=== PATIENT | female | born 1965 | race Caucasian/White ===

== ENCOUNTER → 2017-06-19 | Outpatient (CLI) | payer OTHER | LOC: FIMAGING 16:10 | PROVIDERS: ATTEND Orthopaedic Surgery | DX: Z01.818 Encounter for other preprocedural examination (principal); M17.11 Unilateral primary osteoarthritis, right knee ==

== ENCOUNTER 2017-07-05 09:33 | Inpatient (IN) | payer OTHER ==
[~2017-07-05 09:33] MED LIST: ROPIVACAINE 0.2% 80 MG, EPINEPHrine 0.2 MG, KETOROLAC TROMETHAMINE 30 MG in SYRINGE 0 ML IU ONE; TRANEXAMIC ACID 3,000 MG in NS 50 ML IRR ONE
[2017-07-05] MEDS ORDERED: VANCOMYCIN 1 GM VIAL ONE (10:29)
[2017-07-05] MEDS ORDERED: TRANEXAMIC ACID 3,000 MG/50 ML BAG IRR ONE (10:29)
[2017-07-05] MEDS ORDERED: LR 1,000 ML IV ONE (10:48)
[2017-07-05] MEDS ORDERED: DEXAMETHASONE 4 MG/ML VIAL IVP ONE (10:48)
[2017-07-05] MEDS ORDERED: ACETAMINOPHEN 325 MG TAB PO ONE (10:48)
[2017-07-05] MEDS ORDERED: FAMOTIDINE 20 MG TAB PO ONE (10:48)
[2017-07-05] MEDS ORDERED: LIDOCAINE 1% 2 ML INJ ID PRN (10:48)
[2017-07-05] MEDS ORDERED: ceFAZolin 2 GM/SWFI 2 GM/20 ML SYR IVP ONE (10:48)
--- NOTE | 2017-07-05 11:56 | PDHPUP ---
History & Physical Update H&P update statement: This history and physical update is based on an assessment of the patient which was completed after admission or registration (within 24 hours), but prior to the surgery/procedure. H&P update: H&P reviewed & patient examined, no change in patient's condition since H&P completed
[2017-07-05] MEDS ORDERED: MIDAZOLAM 2 MG/2 ML VIAL ONE (13:38)
[2017-07-05] MEDS ORDERED: MIDAZOLAM 2 MG/2 ML VIAL IVP ONE (13:39)
--- NOTE | 2017-07-05 13:41 | PDANEPAE ---
ANE History of Present Illness R KNEE OA ANE Past Medical History - Cardiovascular History Hx Hypertension: No Hx Arrhythmias: No Hx Chest Pain: No Hx Coronary Artery / Peripheral Vascular Disease: No Hx CHF / Valvular Disease: No Hx Palpitations: No - Pulmonary History Hx COPD: No Hx Asthma/Reactive Airway Disease: No Hx Recent Upper Respiratory Infection: No Hx Oxygen in Use at Home: No Hx Sleep Apnea: No Sleep Apnea Screening Result - Last Documented: Negative - Neurologic History Hx Cerebrovascular Accident: Yes Hx Seizures: No Hx Dementia: No Neurologic History Comment: migraine that present as stoke symptoms age 25 - Endocrine History Hx Diabetes: No - Renal History Hx Renal Disorders: No - Liver History Hx Hepatic Disorders: No - Neurological & Psychiatric Hx Hx Neurological and Psychiatric Disorders: No - Cancer History Hx Cancer: No - Congenital Disorder History Hx Congenital Disorders: No - GI History Hx Gastrointestinal Disorders: No - Other Health History Other Health History: none - Chronic Pain History Chronic Pain: No - Surgical History Prior Surgeries: two knee , shoulder surgeries ANE Review of Systems Review of Systems: - Exercise capacity METS (RN): 4 METS ANE Patient History - Allergies Allergies/Adverse Reactions: No Known Allergies Allergy (Verified 06/02/17 16:15) - Home Medications Home Medications: Aspirin [Aspirin 81mg (*)] 81 mg PO DAILY 05/26/17 [Last Taken 06/21/17] Herbals/Supplements -Info Only 1 ea PO DAILY 05/26/17 [Last Taken 06/21/17] - NPO status NPO Status: no food or drink >8 hours NPO Since - Liquids (Date): 07/05/17 NPO Since - Liquids (Time): 08:00 NPO Since - Solids (Date): 07/04/17 NPO Since - Solids (Time): 19:30 - Smoking Hx Smoking Status: Never smoked - Family Anes Hx Family Hx Anesthesia Complications: none ANE Labs/Vital Signs - Vital Signs Vital Signs: reviewed preoperatively; see RN documention for details Blood Pressure: 124/69 Heart Rate: 74 Respiratory Rate: 16 O2 Sat (%): 96 Height: 180.34 cm Weight: 79.379 kg ANE Physical Exam - Airway Neck exam: FROM Mallampati Score: Class 3 Mouth exam: normal dental/mouth exam - Pulmonary Pulmonary: no respiratory distress - Cardiovascular Cardiovascular: regular rate and rhythym - ASA Status ASA Status: II ANE Anesthesia Plan Anesthesia Plan: GA w LMA, spinal Regional Anesthesia: adductor canal FNB
[2017-07-05] MEDS ORDERED: PROPOFOL/EMULSION 500 MG/50 ML BOTTLE IV ONE (13:46)
[2017-07-05] MEDS ORDERED: fentaNYL 100 MCG/2 ML INJ ONE ×3 (13:46→16:11)
[2017-07-05] MEDS ORDERED: OXYCODONE/APAP 5/325 TAB PO PRN (14:23)
[2017-07-05] MEDS ORDERED: PROMETHAZINE HCL 25 MG/ML INJ IVP PRN ×2 (14:23→15:15)
[2017-07-05] MEDS ORDERED: MEPERIDINE 25 MG/ML SYR IVP PRN (14:23)
[2017-07-05] MEDS ORDERED: NALOXONE HCL 0.4 MG/ML INJ IVP PRN (14:23)
[2017-07-05] MEDS ORDERED: ONDANSETRON 4 MG/2 ML VIAL IVP PRN ×2 (14:23→15:15)
[2017-07-05] MEDS ORDERED: DEXAMETHASONE 4 MG/ML VIAL ONE (15:07)
[2017-07-05] MEDS ORDERED: ONDANSETRON 4 MG/2 ML VIAL ONE (15:07)
[2017-07-05] MEDS ORDERED: ROPIVACAINE HCL 150 MG/30 ML INJ ONE (15:07)
[2017-07-05] MEDS ORDERED: POLYETHYLENE GLYCOL 3350 17 GM PKT PO PRN (15:15)
[2017-07-05] MEDS ORDERED: LACTULOSE 20 GM/30 ML UDCUP PO PRN (15:15)
[2017-07-05] MEDS ORDERED: DIPHENOXYLATE/ATROPINE LOMOTIL 1 TAB PO PRN (15:15)
[2017-07-05] MEDS ORDERED: TEMAZEPAM 15 MG CAP PO PRN (15:15)
[2017-07-05] MEDS ORDERED: PROMETHAZINE HCL 25 MG SUPPR PR PRN (15:15)
[2017-07-05] MEDS ORDERED: BISACODYL 10 MG SUPP PR PRN (15:15)
[2017-07-05] MEDS ORDERED: CYCLOBENZAPRINE 10 MG TAB PO PRN (15:15)
[2017-07-05] MEDS ORDERED: METOCLOPRAMIDE 10 MG/2 ML VIAL IVP PRN (15:15)
[2017-07-05] MEDS ORDERED: diphenhydrAMINE 25 MG CAP PO PRN (15:15)
[2017-07-05] MEDS ORDERED: MAGNESIUM HYDROXIDE 30 ML UDCUP PO PRN (15:15)
[2017-07-05] MEDS ORDERED: ONDANSETRON DISINTEGRATING 4 MG TAB PO PRN (15:15)
--- NOTE | 2017-07-05 15:15 | POSTOPPROG ---
Post Op Note Date of Operation: 07/05/17 Surgeon: Jose Juan Xiao Primary Care Md: juancarlos xiao Anesthesiologist: dr. kee Anesthesia: Spinal, Other (Specify) (adductor canal block) Pre-op Diagnosis: right knee OA Post-op Diagnosis: same Indication: right knee pain due to OA that failed conservative measures Procedure: R TKA robot assisted Findings: severe knee OA Inf/Abcess present in the surg proc area at time of surgery?: No EBL: 50-100
[2017-07-05] MEDS ORDERED: LR 1,000 ML IV SCH (15:30)
--- NOTE | 2017-07-05 15:30 | POSTANESTH ---
Post Anesthetic Evaluation Cardiovascular Status: Normal, Stable Respiratory Status: Normal, Stable Level of Consciousness/Mental Status: Can Participate in Eval Pain Control: Adequate, Prn Tx Ordered Nausea/Vomiting Control: Adequate, Prn Tx Ordered Complications Possibly Related to Anesthesia: None Noted
[2017-07-05] MEDS ORDERED: HYDROmorphONE/DILAUDID 1 MG/ML INJ ONE ×2 (15:35→16:10)
[2017-07-05] MEDS: fentaNYL 100 MCG/2 ML INJ IVP PRN ×4 (15:39→16:54)
[2017-07-05] MEDS: HYDROmorphONE/DILAUDID 1 MG/ML INJ IVP PRN ×5 (15:40→16:53)
[2017-07-05] MEDS ORDERED: WARFARIN SODIUM 5 MG TAB PO SCH (16:00)
[2017-07-05] MEDS: ACETAMINOPHEN 325 MG TAB PO SCH ×2 (17:55→23:37)
[2017-07-05] MEDS: SENNOSIDES/DOCUSATE SODIUM TAB PO SCH (20:48)
[2017-07-05] MEDS: oxyCODONE IR 5 MG TAB PO PRN ×2 (20:48→23:39)
[2017-07-05] MEDS: FAMOTIDINE 20 MG TAB PO SCH (20:48)
[2017-07-05] MEDS: ceFAZolin 2 GM/DEXTROSE 100 ML IV SCH (20:48)
[2017-07-05 23:43] VITALS: O2SAT 98
[2017-07-06 04:55] LABS: HEMATOCRIT 37.3 % (38.0-47.0); HEMOGLOBIN 12.9 g/dL (12.6-16.3)
[2017-07-06 05:01] LABS: INR 1.17 (0.83-1.16); PROTIME(PATIENT) 15.1 SEC (12.0-15.0)
[2017-07-06] MEDS: ceFAZolin 2 GM/DEXTROSE 100 ML IV SCH (05:53)
[2017-07-06] MEDS: ACETAMINOPHEN 325 MG TAB PO SCH ×2 (05:53→11:52)
[2017-07-06 07:47] VITALS: BP 91/67; RESP 16; TEMP 97
[2017-07-06] MEDS ORDERED: ENOXAPARIN 40 MG/0.4 ML SYR SC SCH (09:00)
[2017-07-06] MEDS: FAMOTIDINE 20 MG TAB PO SCH (09:40)
[2017-07-06] MEDS: SENNOSIDES/DOCUSATE SODIUM TAB PO SCH (09:40)
[2017-07-06] MEDS: oxyCODONE IR 5 MG TAB PO PRN (09:43)
--- NOTE | 2017-07-06 11:56 | ASDISCHSUM ---
Discharge Information Plan Status:Home with No Needs Medically Cleared to Leave: Discharge Date:07/06/2017 11:53 AM CM D/C Disposition:Home, Routine, Self-Care ADT D/C Disposition:Home, Routine, Self-Care Projected Discharge Date:07/06/2017 11:53 AM Transportation at D/C: Discharge Delay Reason: Follow-Up Date:07/06/2017 11:53 AM Discharge Slot: Final Diagnosis: Placement Information Patient Contact Information Contact Name:SUJATHA Relationship: Address:[address] Work Phone: [facility]:[place] Alternate Phone: [facility]/Zip Code:[place] [address] Email: Financial Information Financial Class:HMO and PPO Plans Primary Plan Desc:[employer] Primary Plan Number:[id number] Secondary Plan Desc: Secondary Plan Number: Assessment Information Intervention Information
[2017-07-06 13:09] VITALS: PULSE 65
--- NOTE | 2017-07-06 19:51 | SOAPPROG ---
SOAP Progress Note Assessment/Plan: Assessment: Cinthia is doing well today s/p R TKA pain is well controlled anemia: level expected initially postop, asymptomatic VTE PPX: recommend coumadin and lovenox D/c planning: d/c to home today Plan: 07/06/17 19:50 Subjective: Cinthia is doing well, states mild nausea last night improved with zofran, denies SOB, chest pain. Objective: Vital Signs Temp Pulse Resp BP Pulse Ox 36.1 C 65 16 91/67 L 98 07/06/17 07:44 07/06/17 09:50 07/06/17 07:44 07/06/17 07:44 07/06/17 09:50 Laboratory Results 07/06/17 04:25 07/05/17 07/06/17 07/07/17 05:59 05:59 05:59 Intake Total 1100 Output Total 330 Balance 770 PT 15.1 SEC (12.0-15.0) H 07/06/17 04:25 INR 1.17 (0.83-1.16) H 07/06/17 04:25 RLE: incision dressing is clean and dry, NVI, +pf/df ICD10 Worksheet Patient Problems: Problems Problem Status Onset Primary localized osteoarthritis of right knee Acute
--- NOTE | 2017-07-07 15:47 | GOP ---
[f rep st] OPERATIVE REPORT DATE OF OPERATION: 07/05/2017 SURGEON: Marie Hammond MD APPRENTICESHIP CONSULTANT: REJI Jean. ANESTHESIA: Spinal. PREOPERATIVE DIAGNOSIS: Right knee osteoarthritis POSTOPERATIVE DIAGNOSIS: Right knee osteoarthritis. PROCEDURE PERFORMED: Total knee arthroplasty with computer navigation and robotic assistance. FINDINGS/PATHOLOGY: Severe tricompartmental osteoarthritis. ESTIMATED BLOOD LOSS: 30 cc INDICATIONS: This is a 51-year-old female with severe and progressive pain and deformity of the right knee unresponsive to conservative care. Risks and benefits of the surgical intervention were explained in detail. DESCRIPTION OF PROCEDURE: The patient was brought to the operative room and placed on the table in the supine position. Spinal anesthesia was induced without difficulty. A pneumatic tourniquet was applied about the right proximal thigh, and the leg was prepped and draped in a sterile fashion. The leg levy was applied. After exsanguination by elevation the tourniquet was inflated to 250 mm of mercury. Incision was made anterior medial from the tibial tuberosity to a point 2 cm proximal to the superior pole of the patella. Medial parapatellar arthrotomy was carried out from the superior pole of the patella and posteriorly in line with the fibers of the Type II VMO. The medial collateral ligament was elevated and the infrapatellar fat pad was resected. The patella was everted and the articular surface was excised. A 35 mm patellar button was placed. Attention was turned first to the distal aspect of the right femur. At 3 cm proximal to the medial rise of the femur, 2 percutaneous half pins were placed for fixation of the femoral array. In a similar fashion, 2 pins were placed anteromedial on the tibia for fixation of the tibial array. External land marking and registration of the hip center was performed without difficulty. Internal femoral and tibial registration was carried out without difficulty and the femoral and tibial checkpoints were placed and verified for accuracy. Attention was turned to the femur. The foot print for the size 5 femoral component was cut with the saw using the [employer] robotic system and verified for accuracy against the CT based plan. In a similar fashion, saw was used to cut the footprint for the size 5 tibial component using the [employer] system and verified for accuracy against the CT based plan. The tibial articular surface was excised without difficulty, followed by the intercondylar box cut. The knee was extended and the remnants of the medial and lateral meniscus were excised. The posterior capsule was injected with ropivacaine, epinephrine and Toradol. A size 5 MIS mini-keel tibial tray was positioned. Trial reduction was then carried out. There was excellent range of motion, alignment, and stability using the 13 mm polyethylene. All trials were then removed. The joint was thoroughly irrigated and carefully dried. The press fit components were implanted The permanent 13 mm polyethylene was placed without difficulty. The tourniquet was deflated and all bleeders were coagulated. The wound was thoroughly irrigated and closed using interrupted sutures of 2-0 Vicryl for the joint capsule. The subcu was closed with 3-0 Vicryl and the skin with 4-0 Monocryl. Dermabond and Steri-Strips were applied followed by a compressive dressing. The patient was then moved from the operating room to the recovery room in good condition, having tolerated the procedure well. /[id number]/MODL MTDD
== END 2017-07-06 11:53 | disposition home or self-care (01) | DRG 470 ==
LOC: F3E 10:39 → F3N 16:04
PROVIDERS: ADMIT Orthopaedic Surgery; ATTEND Orthopaedic Surgery
PROC: 0SRC0JZ Replacement of Right Knee Joint with Synthetic Substitute, Open Approach (ICD-10-PCS; principal; 2017-07-05 13:15)
PROC: 8E0Y0CZ Robotic Assisted Procedure of Lower Extremity, Open Approach (ICD-10-PCS; principal; 2017-07-05 13:15)
DX: M17.11 Unilateral primary osteoarthritis, right knee (principal)
CPT/HCPCS: 97161-GP; 97165-GO; J0171; J0690; J1100; J1170; J1650; J1885; J2250; J2405; J2704; J2795; J3010; J3370

== ENCOUNTER → 2017-11-21 | Outpatient (CLI) | payer OTHER | LOC: FIMAGING 15:40 | PROVIDERS: ATTEND Orthopaedic Surgery | DX: M17.12 Unilateral primary osteoarthritis, left knee (principal); M25.462 Effusion, left knee; K57.30 Diverticulosis of large intestine without perforation or abscess without bleeding ==

== ENCOUNTER 2017-12-13 06:51 | Observation (INO) | payer OTHER ==
[~2017-12-13 06:51] MED LIST changes: +TRANEXAMIC ACID 3,000 MG in NS (SYRINGE) 50 ML IRR ONE; -TRANEXAMIC ACID 3,000 MG in NS 50 ML IRR ONE
[2017-12-13] MEDS ORDERED: TRANEXAMIC ACID 3,000 MG/50 ML BAG IRR ONE (07:58)
[2017-12-13] MEDS ORDERED: FAMOTIDINE 20 MG TAB PO ONE (08:07)
[2017-12-13] MEDS ORDERED: DEXAMETHASONE 4 MG/ML VIAL IVP ONE (08:07)
[2017-12-13] MEDS ORDERED: LIDOCAINE 1% 2 ML INJ ID PRN (08:07)
[2017-12-13] MEDS ORDERED: LR 1,000 ML IV ONE (08:07)
[2017-12-13] MEDS ORDERED: ACETAMINOPHEN 325 MG TAB PO ONE (08:07)
[2017-12-13] MEDS ORDERED: ceFAZolin 2 GM/DEXTROSE 100 ML IV ONE (08:07)
[2017-12-13] MEDS ORDERED: ceFAZolin 2 GM/SWFI 2 GM/20 ML SYR IVP ONE (08:30)
[2017-12-13] MEDS ORDERED: VANCOMYCIN 1 GM VIAL ONE (08:52)
[2017-12-13] MEDS ORDERED: MIDAZOLAM 2 MG/2 ML VIAL IVP ONE (09:06)
[2017-12-13] MEDS ORDERED: MIDAZOLAM 2 MG/2 ML VIAL ONE (09:06)
--- NOTE | 2017-12-13 09:07 | PDANEPAE ---
ANE History of Present Illness left knee oa ANE Past Medical History - Cardiovascular History Hx Hypertension: No Hx Arrhythmias: No Hx Chest Pain: No Hx Coronary Artery / Peripheral Vascular Disease: No Hx CHF / Valvular Disease: No Hx Palpitations: No - Pulmonary History Hx COPD: No Hx Asthma/Reactive Airway Disease: No Hx Recent Upper Respiratory Infection: No Hx Oxygen in Use at Home: No Hx Sleep Apnea: No Sleep Apnea Screening Result - Last Documented: Negative - Neurologic History Hx Cerebrovascular Accident: Yes Hx Seizures: No Hx Dementia: No Neurologic History Comment: migraine that present as stoke symptoms age 25 - Endocrine History Hx Diabetes: No - Renal History Hx Renal Disorders: No - Liver History Hx Hepatic Disorders: No - Neurological & Psychiatric Hx Hx Neurological and Psychiatric Disorders: No - Cancer History Hx Cancer: No - Congenital Disorder History Hx Congenital Disorders: No - GI History Hx Gastrointestinal Disorders: No - Other Health History Other Health History: none - Chronic Pain History Chronic Pain: No - Surgical History Prior Surgeries: two knee , shoulder surgeries ANE Review of Systems Review of Systems: - Exercise capacity METS (RN): 4 METS ANE Patient History - Allergies Allergies/Adverse Reactions: No Known Allergies Allergy (Verified 11/29/17 16:09) - Home Medications Home Medications: Herbals/Supplements -Info Only 1 ea PO DAILY 05/26/17 [Last Taken 06/21/17] Aspirin [Aspirin 81mg (*)] 81 mg PO DAILY 11/22/17 [Last Taken Unknown] - NPO status NPO Since - Liquids (Date): 12/12/17 NPO Since - Liquids (Time): 23:00 NPO Since - Solids (Date): 12/12/17 NPO Since - Solids (Time): 23:00 - Smoking Hx Smoking Status: Never smoked - Family Anes Hx Family Hx Anesthesia Complications: none ANE Labs/Vital Signs - Vital Signs Blood Pressure: 110/62 Heart Rate: 72 Respiratory Rate: 16 O2 Sat (%): 98 Height: 177.8 cm Weight: 77.111 kg ANE Physical Exam - Airway Neck exam: FROM Mallampati Score: Class 2 Mouth exam: normal dental/mouth exam - Pulmonary Pulmonary: no respiratory distress - Cardiovascular Cardiovascular: regular rate and rhythym - ASA Status ASA Status: I ANE Anesthesia Plan Anesthesia Plan: GA w LMA, MAC, spinal Regional Anesthesia: adductor canal FNB
[2017-12-13] MEDS ORDERED: fentaNYL 100 MCG/2 ML INJ ONE (09:10)
[2017-12-13] MEDS ORDERED: PROPOFOL/EMULSION 500 MG/50 ML BOTTLE IV ONE (09:11)
[2017-12-13] MEDS ORDERED: DIPHENOXYLATE/ATROPINE LOMOTIL 1 TAB PO PRN (09:33)
[2017-12-13] MEDS ORDERED: POLYETHYLENE GLYCOL 3350 17 GM PKT PO PRN (09:33)
[2017-12-13] MEDS ORDERED: ONDANSETRON 4 MG/2 ML VIAL IVP PRN ×2 (09:33→09:49)
[2017-12-13] MEDS ORDERED: PROMETHAZINE HCL 25 MG/ML INJ IVP PRN ×2 (09:33→09:49)
[2017-12-13] MEDS ORDERED: METOCLOPRAMIDE 10 MG/2 ML VIAL IVP PRN (09:33)
[2017-12-13] MEDS ORDERED: PROMETHAZINE HCL 25 MG SUPPR PR PRN (09:33)
[2017-12-13] MEDS ORDERED: diphenhydrAMINE 25 MG CAP PO PRN (09:33)
[2017-12-13] MEDS ORDERED: MAGNESIUM HYDROXIDE 30 ML UDCUP PO PRN (09:33)
[2017-12-13] MEDS ORDERED: ONDANSETRON DISINTEGRATING 4 MG TAB PO PRN (09:33)
[2017-12-13] MEDS ORDERED: TEMAZEPAM 15 MG CAP PO PRN (09:33)
[2017-12-13] MEDS ORDERED: BISACODYL 10 MG SUPP PR PRN (09:33)
[2017-12-13] MEDS ORDERED: LACTULOSE 20 GM/30 ML UDCUP PO PRN (09:33)
[2017-12-13] MEDS ORDERED: fentaNYL 100 MCG/2 ML INJ IVP PRN (09:49)
[2017-12-13] MEDS ORDERED: HYDROmorphONE/DILAUDID 2 MG/ML INJ IVP PRN (09:49)
[2017-12-13] MEDS ORDERED: HYDROCODONE/APAP 5/325 TAB PO PRN (09:49)
[2017-12-13] MEDS ORDERED: NALOXONE HCL 0.4 MG/ML INJ IVP PRN (09:49)
[2017-12-13] MEDS ORDERED: LR 1,000 ML IV SCH (10:00)
--- NOTE | 2017-12-13 10:36 | POSTOPPROG ---
Post Op Note Date of Operation: 12/13/17 Surgeon: Jose Juan Xiao Lead Generator: juancarlos xiao Anesthesiologist: dr. kee Anesthesia: Spinal, Other (Specify) (adductor canal block) Pre-op Diagnosis: left knee OA Post-op Diagnosis: same Indication: left knee pain due to OA that failed conservative measures Procedure: L TKA robot assisted, computer navigation Findings: severe knee OA Inf/Abcess present in the surg proc area at time of surgery?: No EBL: 50-100
[2017-12-13] MEDS ORDERED: DEXAMETHASONE 4 MG/ML VIAL ONE (10:37)
[2017-12-13] MEDS ORDERED: ONDANSETRON 4 MG/2 ML VIAL ONE (10:37)
[2017-12-13] MEDS ORDERED: ROPIVACAINE HCL 150 MG/30 ML INJ ONE (10:43)
[2017-12-13] MEDS: ACETAMINOPHEN 325 MG TAB PO SCH ×3 (12:40→23:19)
[2017-12-13] MEDS ORDERED: ceFAZolin 2 GM/DEXTROSE 100 ML IV SCH (14:00)
[2017-12-13] MEDS: oxyCODONE IR 5 MG TAB PO PRN ×4 (14:22→23:28)
[2017-12-13] MEDS: CYCLOBENZAPRINE 10 MG TAB PO PRN ×2 (15:30→23:30)
[2017-12-13] MEDS ORDERED: WARFARIN SODIUM 5 MG TAB PO SCH (16:00)
[2017-12-13] MEDS: ceFAZolin 2 GM/SWFI 2 GM/20 ML SYR IVP SCH ×2 (16:36→23:20)
[2017-12-13] MEDS: SENNOSIDES/DOCUSATE SODIUM TAB PO SCH (19:48)
[2017-12-13] MEDS: FAMOTIDINE 20 MG TAB PO SCH (19:49)
[2017-12-14] MEDS: ACETAMINOPHEN 325 MG TAB PO SCH (05:29)
[2017-12-14 06:02] LABS: INR 1.13 (0.83-1.16); PROTIME(PATIENT) 14.7 SEC (12.0-15.0)
[2017-12-14] MEDS: oxyCODONE IR 5 MG TAB PO PRN (06:44)
[2017-12-14 08:00] VITALS: BP 103/60
[2017-12-14] MEDS: SENNOSIDES/DOCUSATE SODIUM TAB PO SCH (08:14)
[2017-12-14] MEDS: FAMOTIDINE 20 MG TAB PO SCH (08:15)
--- NOTE | 2017-12-14 08:38 | SOAPPROG ---
SOAP Progress Note Assessment/Plan: Assessment: Patient is doing well POD 1 s/p L TKA Pain management: pain is well controlled on oral pain meds. patient states less pain with left knee versus right knee that she had replaced several weeks ago VTE ppx: recommend coumadin and lovenox due to history of DVT, cont GABBY and SCDs. INR today 1.13 D/c planning: d/c to home today pending release from PT Plan: 12/14/17 08:36 Subjective: Cinthia is doing well today, states better pain today, denies SOB, chest pain and N/V Objective: Vital Signs Temp Pulse Resp BP Pulse Ox 36.6 C 69 14 103/60 97 12/14/17 07:58 12/14/17 07:58 12/14/17 07:58 12/14/17 07:58 12/14/17 07:58 Laboratory Results 12/14/17 04:56 12/13/17 12/14/17 12/15/17 05:59 05:59 05:59 Intake Total 2060 Output Total 1750 Balance 310 PT 14.7 SEC (12.0-15.0) 12/14/17 04:56 INR 1.13 (0.83-1.16) 12/14/17 04:56 LLE: incision dressing is clean and dry, NVI, +pf/df ICD10 Worksheet Patient Problems: Problems Problem Status Onset Primary localized osteoarthritis of left knee Acute Primary localized osteoarthritis of right knee Acute
[2017-12-14] MEDS ORDERED: ENOXAPARIN 40 MG/0.4 ML SYR SC SCH (09:00)
--- NOTE | 2017-12-14 09:22 | GDS ---
[f rep st] DISCHARGE SUMMARY ADMISSION DIAGNOSIS: Left knee osteoarthritis. DISCHARGE DIAGNOSIS: Left knee osteoarthritis. PROCEDURE: Left total knee arthroplasty, robotic assisted with computer navigation. VTE PROPHYLAXIS: Recommend Coumadin and Lovenox due to history of DVT. BRIEF DESCRIPTION OF HOSPITAL STAY: Patient was admitted for an elective joint arthroplasty. The pa tient tolerated the procedure well and has passed physical therapy. The patient was given appropriat e antibiotic prophylaxis and venous thromboembolism prophylaxis. The patient's pain was well control led on oral pain medication, patient was holding down food, and had urinated. Decision was made to d ischarge the patient. The patient was given post-operative prescriptions pre-operatively. PLAN: To follow up as scheduled in Dr. Hammond's office on January 04 at 11 a.m. /[id number]/MODL
--- NOTE | 2017-12-14 23:01 | GOP ---
[f rep st] OPERATIVE REPORT DATE OF OPERATION: 12/13/2017 SURGEON: Marie Hammond MD NEUROSURGEON: Marie Hammond MD. DRY CLEANER PRESSER: REJI Jean. ANESTHESIA: Spinal. PREOPERATIVE DIAGNOSIS: Left knee osteoarthritis. POSTOPERATIVE DIAGNOSIS: Left knee osteoarthritis. PROCEDURE PERFORMED: Left total knee arthroplasty with computer navigation, robotic assist. FINDINGS: Severe medial and patellofemoral osteoarthritis. ESTIMATED BLOOD LOSS: 30 cc. INDICATIONS: The patient is a 52-year-old female with severe and progressive pain and deformity of t he left knee unresponsive to conservative care. The risks and benefits of surgical intervention were explained in detail. DESCRIPTION OF PROCEDURE: The patient was brought to the operative room and placed on the table in t he supine position. Spinal anesthesia was induced without difficulty. A pneumatic tourniquet was appl ied about the left proximal thigh, and the leg was prepped and draped in a sterile fashion. The leg h older was applied. After exsanguination by elevation the tourniquet was inflated to 250 mmHg. Incision was made anterior medial from the tibial tuberosity to a point 2 cm proximal to the superior pole of the patella. Medial parapatellar arthrotomy was carried out from the superior pole of the pa tella and posteriorly in line with the fibers of the Type II VMO. The medial collateral ligament was elevated and the infrapatellar fat pad was resected. The patella was everted and the articular surface was excised. A 35 mm patellar button was placed. Attention was turned first to the distal aspect of the femur. After exposure of the femur, 2 half pi ns were placed for fixation of the femoral array. In a similar fashion, 2 pins were placed anteromed ial on the tibia for fixation of the tibial array. External land marking and registration of the hip center was performed without difficulty. Internal femoral and tibial registration was carried out w ithout difficulty and the femoral and tibial checkpoints were placed and verified for accuracy. Attention was turned to the femur. The foot print for the size 5 femoral component was cut with the saw using the [employer] robotic system and verified for accuracy against the CT based plan. In a similar f ashion, the saw was used to cut the footprint for the size 5 tibial component using the [employer] system an d verified for accuracy against the CT based plan. The tibial articular surface was excised without d ifficulty, followed by the intercondylar box cut. The knee was extended and the remnants of the medial and lateral meniscus were excised. The posterior capsule was injected with ropivacaine, epinephrine and Toradol. A size 5 tibial tray was positioned . Trial reduction was then carried out. There was excellent range of motion, alignment, and stability using the 9 mm polyethylene. All trials were then removed. The joint was thoroughly irrigated and carefully dried. The 9 mm polyet hylene X3 press fit components were implanted. The permanent 9 mm polyethylene was placed without dif ficulty. The tourniquet was deflated and all bleeders were coagulated. The wound was thoroughly irrigated and closed using interrupted sutures of 2-0 Vicryl for the joint capsule. The subcu was closed with 3-0 V icryl and the skin with 4-0 Monocryl. Dermabond and Steri-Strips were applied followed by a compress lilliana dressing. The patient was then moved from the operating room to the recovery room in good conditi on, having tolerated the procedure well. /[id number]/MODL
== END 2017-12-14 09:55 | disposition home or self-care (01) ==
LOC: F3N 06:51
PROVIDERS: ADMIT Orthopaedic Surgery; ATTEND Orthopaedic Surgery
PROC: 0SRD0JZ Replacement of Left Knee Joint with Synthetic Substitute, Open Approach (ICD-10-PCS; principal; 2017-12-13 09:15)
DX: M17.12 Unilateral primary osteoarthritis, left knee (principal)
CPT/HCPCS: 27447; 73560; 97116; 97161; G0378; J0171; J0690; J1100; J1650; J1885; J2250; J2405; J2704; J2795; J3010; J3370